=== PATIENT | female | born 1995 | race Caucasian/White ===

== ENCOUNTER → 2023-04-29 14:55 | Outpatient (BNVA) | payer MEDICARE, MEDICAID, SELFPAY | PROVIDERS: Visit Provider Obstetrics & Gynecology | DX: Z34.90 Encounter for supervision of normal pregnancy, unspecified, unspecified trimester (principal) | CPT/HCPCS: 81000 ==

== ENCOUNTER → 2023-06-17 14:20 | Outpatient (BNVA) | payer MEDICARE, MEDICAID, SELFPAY | PROVIDERS: Visit Provider Obstetrics & Gynecology | DX: Z34.80 Encounter for supervision of other normal pregnancy, unspecified trimester (principal) | CPT/HCPCS: 80307; 84315; 85027; 86592; 86762; 86803; 86850; 86900; 87086; 87340; 87806 ==

== ENCOUNTER 2024-07-02 13:56 | Outpatient (CLI) | payer MEDICARE, MEDICAID, SELFPAY ==
--- NOTE | 2024-07-02 14:01 | US_ITS ---
WS: [id number] EARLY OBSTETRICAL ULTRASOUND (<14 WEEKS). HISTORY: encounter for supervision of other normal , first t COMPARISON: None available. Single intrauterine gestational sac is identified. Cardiac activity at 145 BPM. Single intrauterine g estation identified. Biometry measurements consistent with an age of 15 weeks and 3 days. Placenta is developing anterior. Cervix is closed. No free fluid. Neither ovary is identified. US/US OB <= 14 weeks fetus [id number] IMPRESSION: 1. Single intrauterine gestation of 15 weeks 3 days with an EDC of 12/21/2024. 2. Normal cardiac activity.
== END 2024-07-02 13:57 | disposition home or self-care (01) ==
LOC: RAD 13:57
PROVIDERS: PCP Family Medicine; Visit Provider Family Medicine
DX: Z34.81 Encounter for supervision of other normal pregnancy, first trimester (principal)
CPT/HCPCS: 76801

== ENCOUNTER 2024-09-03 15:12 | Outpatient (CLI) | payer MEDICARE, MEDICAID, SELFPAY ==
--- NOTE | 2024-09-03 15:16 | USR_ITS ---
PROCEDURE INFORMATION: Exam: US After First Trimester, Transabdominal Exam date and time: 09/03/2024 3:57 PM Age: 28 years old Clinical indication: Screening exam; Routine US, uterus; Additional info: Encounter ofr supervision of other normal preg. Second tri LABS AND CLINICAL REPORTS: Gestational age (Established): 24 w 3 d Estimated due date (Established): 12/21/2024 TECHNIQUE: Imaging protocol: Real-time transabdominal obstetrical ultrasound of the maternal pelvis and a second or third trimester with image documentation. COMPARISON: US OB <= 14 weeks fetus [id number] 07/02/2024 2:03 PM FINDINGS: Gestation: Single, viable intrauterine gestation. heart rate: 142 bpm presentation and position: Fetus is in breech presentation. Placenta: The placenta is anterior. No placenta abruption. Amniotic fluid (Qualitative): Amniotic fluid is normal for gestational age. Amniotic fluid index: ALICE is 12.13 cm using the 4 quadrant method. ANATOMY: midline falx: Unremarkable. cerebellum: Unremarkable. lateral ventricles: Unremarkable. cisterna magna: Unremarkable. choroid plexus: Unremarkable. face: Unremarkable. aortic arch: Unremarkable. heart four-chamber view, heart size and position: There is a four-chamber heart. heart right ventricular outflow tract: Unremarkable. heart left ventricular outflow tract: Unremarkable. diaphragm: Unremarkable. kidneys: Unremarkable. stomach: Unremarkable. urinary bladder: Unremarkable. spine: Unremarkable. Umbilical cord and insertion: There is a three-vessel umbilical cord. upper limbs: Unremarkable as visualized. lower limbs: Unremarkable as visualized. external genitalia: Presumptive male genitalia. BIOMETRY: Gestational age (AUA): EGA Estimated due date (AUA): ROYCE Estimated weight: 694.43 g or 1 lb 8 oz, 40th percentile. EFW by AC, BPD, FL, HC, [place] 1985 Biparietal diameter (BPD): 5.82 cm. EGA (BPD) is 23 w 6 d. 22.5 % percentile Head circumference (HC): 22.24 cm. EGA (HC) is 24 w 2 d. 25 % percentile Abdominal circumference (AC): 19.92 cm. EGA (AC) is 24 w 4 d. 45.4 % percentile Femur length (FL): 4.37 cm. EGA (FL) is 24 w 2 d. 34.2 % percentile HC/AC: 1.12. (Normal range: 1.04 - 1.22) FL/HC: 19.65. (Normal range: 18.7 - 20.73) FL/BPD: 75.09. (Normal range: 71 - 87) FL/AC: 21.94. (Normal range: 20 - 24) MATERNAL: Uterus: Unremarkable. Cervix: Not evaluated. Right ovary/adnexa: Obscured by lack of adequate acoustic window. Left ovary/adnexa: Obscured by lack of adequate acoustic window. Intraperitoneal space: No ascites. US/US OB >= 14 weeks fetus [id number] IMPRESSION: 1. Single live intrauterine gestation. Estimated gestational age of 24 weeks 2 days. by ultrasound. Estimated delivery date by ultrasound is 12/22/2024. There has been interval growth of the fetus. 2. Unremarkable anatomic survey. 3. Incidental/nonacute findings are listed in the report.
== END 2024-09-03 15:13 | disposition home or self-care (01) ==
LOC: RAD 15:15
PROVIDERS: PCP Family Medicine; Visit Provider Family Medicine
DX: Z34.82 Encounter for supervision of other normal pregnancy, second trimester (principal)
CPT/HCPCS: 76805

== ENCOUNTER 2024-11-01 16:03 | Outpatient (CLI) | payer MEDICARE, MEDICAID, SELFPAY ==
[2024-11-01] VITALS (8 sets, daily range): BP systolic 113–128; BP diastolic 59–79; PULSE 81–96; RESP 15; TEMP 36.8; BMI 30.9
[2024-11-01 16:53] LABS: Bilirubin Urine 1+ (Negative); Blood Urine Negative (Negative); Glucose Urine UA Negative (Normal); Ketones Urine 1+ (Negative); Leukocyte Esterase Urine 2+ (Negative); Nitrate Urine Negative (Negative); Protein Urine 1+ (Negative); Specific Gravity, Urine 1.027 (1.005-1.030); Urine Appearance Cloudy (CLEAR); Urine Color Dark Yellow (Yellow)
[2024-11-01 16:58] LABS: Bacteria Urine 4+ /hpf; RBC Urine 0-2 /hpf (0-2); Squamous Epithelial Cell Urine 21-50 /hpf (0-5); WBC Urine 51-100 /hpf (0-5)
[2024-11-01 17:08] LABS: Add Urine Culture? Yes
[2024-11-01] MEDS: lactated ringers 1,000 ML 999 ML IV (17:40)
[2024-11-01] MEDS: ondansetron 2 mg/ML SDV 2 mL 4 MG IVP (17:55)
== END 2024-11-01 18:57 | disposition home or self-care (01) ==
LOC: OPOB 16:04 → OBGYN 16:05
PROVIDERS: Family Medicine; PCP Family Medicine; Visit Provider Family Medicine
DX: O21.9 Vomiting of pregnancy, unspecified (principal); Z3A.00 Weeks of gestation of pregnancy not specified
CPT/HCPCS: 36415; 59025; 81001; 87086; 96374; 99211; J2405; J7120

== ENCOUNTER 2024-11-25 15:47 | Inpatient (IN) | payer MEDICARE, MEDICAID, SELFPAY ==
[2024-11-25] VITALS (24 sets, daily range): BP systolic 99–121; BP diastolic 53–72; PULSE 75–100; BMI 32.1
--- NOTE | 2024-11-25 15:33 | P.HP_ITS ---
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 Denies LOF, vaginal bleeding. Good movement. care has been inconsistent but has had 6-7 visits. Past medical history of delivery in her first 2 pregnancies followed by a term delivery. Otherwise course has been overall unremarkable. Present Details : 4 Para: 3 Labs Blood type OB HPI: A (+) positive Rubella: Immune RPR: Negative GBS: Unknown HBsAG: Negative Other Lab Information: Antibody screen negative HIV NR HCV Ab NR Initial H/H 12.5/36.5 GC/CHlam negative [id number] negative for Trisomy 13, 18, 21 Pap smear 07/01/24 NILM, HPV negative 1hr GTT passed (120) 3rd trimester H/H 10.6/31.4 Medications/Allergies Home Medications Medication Instructions Recorded Confirmed Last Taken Type prenat.vits,marly,[id number] 1 tab PO DAILY 04/29/23 11/25/24 11/24/24 History Allergies Allergy/AdvReac Type Severity Reaction Status Date / Time No Known Allergies Allergy Verified 06/17/23 14:39 PFSH 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 2 PFSH: Family History (Updated 04/29/23 @ 15:14 by Chiquis Greenberg [facility]) Mother Hypertension Father Diabetes Denies family history of Cervical cancer Colon cancer Ovarian cancer Breast cancer Uterine cancer Stroke History History History 2 4 Term 1 2 Miscarriages/Ectopic 1 Living Children 3 Vitals/I&O/Wt Last Vital Signs Pulse 81 11/25/24 14:19 BP 113/70 11/25/24 14:19 Weight last 48 hrs Weight 193 lb Physical Exam 2 Const: COMMON NORMALS: no acute distress, healthy appearing and alert Resp: COMMON NORMALS: normal respiratory effort and clear to auscultation bilaterally Cardio: COMMON NORMALS: regular rate, regular rhythm, S1 normal heart sound present and S2 normal heart sound present : OTHER: Gravid- S=D Extremity: NARRATIVE EXTREMITY EXAM: No LE edema Data 11/25/24 15:30 Results Labs OB ([facility]): 2 Blood Type A Positive 11/25/24 Antibody Screen Negative 11/25/24 Hct 31.8 % (36-47) L 11/25/24 Hgb 10.30 g/dL (11.27-16.99) L 11/25/24 Rho(D) Type Rh positive 11/25/24 A&P Assessment and plan (1) labor: Plan 29 year old female at 36w 2d presenting with labor. Initial SVE 4/50/-3 and changed to 5/60/-3 over 1 hour. [place] with ctx irregular q 2-4 minutes. Admit for labor. Routine CBC, blood typing. Intermittent EFM as long as Category I FHT. GBS ppx due to GBS unknown and <37 weeks. Expectant management. Discussed plan of care with patient and agreeable to proceed. Attestations 2 Medical Necessity Statement*: [facility]'s hospital stay will require greater than 2 midnights for labor and delivery and care. Coding Level of Care Code Acute Code for Chg Fwd Diagnoses labor O60.00
[2024-11-25 15:47] LABS: Basophils % 0.2 %; Eosinophils # 0.2 10^3/uL (0.0-0.8); Eosinophils % 2.1 %; Hematocrit 31.8 % (36-47); Lymphocytes # 1.4 10^3/uL (0.8-4.8); Lymphocytes % 12.8 %; Mean Corpuscular HGB Conc 32.4 g/dL (30-55); Mean Corpuscular Hemoglobin 30.8 pg (27-33); Mean Corpuscular Volume 95.2 fl (85-98); Mean Platelet Volume 10.2 fL (7.4-10.4); Monocytes # 0.9 10^3/uL (0.2-0.9); Monocytes % 8.4 %; Neutrophils # 8.23 10^3/uL (1.8-7.7); Neutrophils % 75.3 %; Nucleated Red Blood Cells % 0 %; Platelet Count 199 10^3/cmm (157-399); Red Blood Count 3.34 10^6/uL (3.85-5.65); Red Cell Distribution Width 14.6 % (12.1-15.1); White Blood Count 10.93 10^3/uL (3.29-11.43)
[2024-11-25] MEDS: dextrose 5%-lactated ringers 1,000 ML 125 ML IV (15:49)
[2024-11-25] MEDS: ampicillin 2,000 MG in sodium chloride 0.9% (plus) 50 ML 100 MG IV (15:51)
[2024-11-25] MEDS: ampicillin 1,000 MG in sodium chloride 0.9% (plus) 50 ML 100 MG IV (20:50)
[2024-11-25 22:51] LABS: Amphetamines Screen Urine Negative (Negative); Barbiturates Screen Urine Positive (Negative); Benzodiazepines Screen Urine Negative (Negative); Cocaine Screen Urine Negative (Negative); Opiate Screen Urine Negative (Negative); PCP Screen Urine Negative (Negative); THC Screen Urine Negative (Negative)
[2024-11-25] MEDS: lactated ringers 1,000 ML 999 ML IV (23:27)
[2024-11-26] VITALS (65 sets, daily range): BP systolic 79–141; BP diastolic 40–83; PULSE 77–110; RESP 16–18; TEMP 36.4–36.7; O2SAT 87–100
--- NOTE | 2024-11-26 01:05 | ANES.PROC ---
Anesthesia Procedures Procedure/Date: 11/26/24 Epidural: Time Out Performed: Yes Consents Signed: Procedure Consent Consent: requested by attending/covering physician, from patient, risks and benefits reviewed and patient agrees to proceed Lumbar Level: L3-L4 Epidural position: sitting Epidural procedure: sterile prep of area, 1% lidocaine to numb the area, 18 g needle, neg for paresthesia, test dose given, 1.5% xylocaine 1:200k epi (5cc), 0.2% Ropivacaine bolus ml (4cc and Fentanyl 100mcg), placed PCEA, no systemic response, sterile dressing applied, L.U.D. no apparent complications and 0.2% Ropiavacaine @ mls/hr (13cc/hour) Additional Comments: Pt tolerated well
--- NOTE | 2024-11-26 01:07 | P.ANESASSM_ITS ---
Pre-Anesthetic Assessment Height/Weight: Height 1.65 m Weight 87.543 kg Pulse BP Pulse Ox O2 Del Method 98 128/57 100 Room Air 11/26/24 01:00 11/26/24 01:00 11/26/24 01:00 11/25/24 16:19 Preop Diagnosis: Labor pain KATE Was Beta Samir taken within 24 hours: N/A Was Clonidine taken within 24 hours: N/A Social No alcohol and No tobacco Exam alert, oriented x 3, clear to auscultation bilaterally and regular rate & rhythm Airway Submandibular: within normal limits Cervical ROM: within normal limits Mallampati: Class II Dentition: full History/ROS No significant history except as noted and No significant complaints Pulmonary None reported CV/HEM None reported None reported Hepatic None reported GI None reported Metabolic None reported Musc/skel None reported Neuropsych None reported Anesthetic Plan ASA status: 2 Anesthesia: Anesthesia Evaluation and Regional (specify below) (Epidural) Risk of > 500 ml blood loss (7ml/kg in children): No Medications/Allergies Home Medications Medication Instructions Recorded Confirmed Last Taken Type prenat.vits,marly,[id number] 1 tab PO DAILY 04/29/23 11/25/24 11/24/24 History Allergies Allergy/AdvReac Type Severity Reaction Status Date / Time No Known Allergies Allergy Verified 06/17/23 14:39 Current Medications Generic Name Dose Route Start Last Admin Trade Name Freq PRN Reason Stop Dose Admin Dextrose/Sodium Chloride 1,000 mls @ 125 mls/hr 11/25/24 15:30 11/25/24 16:51 Dextrose 5%-Sod Chloride 0.45% IV Not Given .Q8H TARIK Ampicillin Sodium 1,000 mg/ 50 mls @ 100 mls/hr 11/25/24 19:30 11/25/24 20:50 Sodium Chloride IV 100 mls/hr Q4H TARIK Administration Protocol Dextrose/Lactated Ringer's 1,000 mls @ 125 mls/hr 11/25/24 15:45 11/25/24 15:49 Dextrose 5%-Lactated Ringers IV 125 mls/hr .Q8H TARIK Administration Lactated Ringer's 1,000 mls @ 999 mls/hr 11/25/24 22:46 11/25/24 23:27 Lactated Ringers IV 999 mls/hr .Q1H1M PRN Administration See label comments PFSH Anesthesia Family History (Updated 04/29/23 @ 15:14 by Chiquis Greenberg CMA) Mother Hypertension Father Diabetes Denies family history of Cervical cancer Colon cancer Ovarian cancer Breast cancer Uterine cancer Stroke Female Reproductive History : 4 Data Anesthesia 11/25/24 15:30 Short CBC 11/25/24 Range/Units 15:30 WBC 10.93 (3.29-11.43) 10^3/uL Hgb 10.30 L (11.27-16.99) g/dL Hct 31.8 L (36-47) % MCV 95.2 (85-98) fl Plt Count 199 (157-399) 10^3/cmm Neut % (Auto) 75.3 % Neut # (Auto) 8.23 H (1.8-7.7) 10^3/uL Blood Bank 11/25/24 15:30 Blood Type A Positive Rho(D) Type Rh positive Antibody Screen Negative Cardiac Studies: 2 No Data to Display
[2024-11-26] MEDS: ROPivacaine syringe 100 MG/50 ML SYRINGE 10 MG EPIDURAL ×2 (01:10→04:36)
[2024-11-26] MEDS: ampicillin 1,000 MG in sodium chloride 0.9% (plus) 50 ML 100 MG IV ×2 (01:34→05:30)
[2024-11-26] MEDS: oxytocin 30 UNIT/500 ML BAG IV (02:24)
[2024-11-26] MEDS: ondansetron 2 mg/ML SDV 2 mL 4 MG IVP (05:26)
[2024-11-26] MEDS: ePHEDrine 50 mg/mL Inj 10 MG IVP (05:52)
--- NOTE | 2024-11-26 06:39 | P.PCNOB_ITS ---
Delivery Note: Date of delivery: November 26, 2024 Pre-delivery diagnoses: labor Procedure: Spontaneous vaginal delivery Delivering Physician: Nicky Calzada DO Estimated blood loss (mL): 150 Pre-Delivery Course: Admitted on 11/25/2024 for labor with initial SVE of 1 4/50/-3 and changed to 5/60/-3 over 1-hour. She then gradually progressed to 6/75/-3 and at that time AROM was performed at 2147 with clear fluid. She then progressed to 8/90/- 3 and made no exchange mechanic several hours and so low-dose Pitocin was started. She then progressed to complete. Delivery: Patient progressed to complete. Patient placed in lithotomy position. Patient pushed with adequate effort. Head delivered in SHIRIN position, loose nuchal cord x1 was present and reduced . Shoulders and rest of body delivered without difficulty with adequate epidural anesthesia. Mouth and nares bulb suctioned. Cord clamped and cut after 1 minute delay. Infant placed on maternal abdomen. Infant noted to be vigorous with spontaneous cry. Placenta spontaneously delivered and noted to be intact. Pitocin started. Fundus was noted to be firm with massage. The vagina and cervix were inspected and bilateral periurethral abrasions and no lacerations were noted. Fundus was again noted to be firm. Male born at 0615 with 8/7/7 weighing 6lb 10oz. Placenta noted to be intact with centrally inserted umbilical cord and three- vessel cord. Complications: Maternal none Infant transferred to [facility] for further resuscitation History History History 5 Term 1 3 Miscarriages/Ectopic 1 Living Children 4 A&P Assessment and plan (1) Spontaneous vaginal delivery: (2) delivery: (3) Positive urine drug screen: Coding Level of Care Code Acute Code for Chg Fwd Diagnoses Spontaneous vaginal delivery O80 delivery O60.10X0 Positive urine drug screen R82.5
[2024-11-26] MEDS: PRENATAL VIT NO.130/IRON/FOLIC 1 EACH TABLET PO (09:22)
[2024-11-26] MEDS: docusate sodium 100 mg Capsule PO ×2 (09:22→20:14)
[2024-11-26] MEDS: ferrous sulfate EC 325 mg Tablet PO (09:22)
[2024-11-26] MEDS: ibuprofen 800 mg tablet PO ×3 (09:22→20:14)
[2024-11-26] MEDS: acetaminophen 325 mg Tablet 650 MG PO (13:37)
[2024-11-26 18:10] LABS: Hematocrit 27.8 % (36-47); Mean Corpuscular HGB Conc 32.7 g/dL (30-55); Mean Corpuscular Hemoglobin 31.1 pg (27-33); Mean Corpuscular Volume 94.9 fl (85-98); Mean Platelet Volume 10.3 fL (7.4-10.4); Platelet Count 188 10^3/cmm (157-399); Red Blood Count 2.93 10^6/uL (3.85-5.65); Red Cell Distribution Width 14.7 % (12.1-15.1); White Blood Count 10.23 10^3/uL (3.29-11.43)
[2024-11-27 05:00] VITALS: BP 109/57; PULSE 71; RESP 16; TEMP 36.6; O2SAT 96
[2024-11-27] MEDS: acetaminophen 325 mg Tablet 650 MG PO (06:46)
[2024-11-27 09:10] VITALS: BP 110/70; PULSE 70; RESP 17; TEMP 36.7; O2SAT 97
[2024-11-27] MEDS: ibuprofen 800 mg tablet PO ×2 (09:12→14:35)
[2024-11-27] MEDS: PRENATAL VIT NO.130/IRON/FOLIC 1 EACH TABLET PO (09:12)
[2024-11-27] MEDS: ferrous sulfate EC 325 mg Tablet PO (09:12)
[2024-11-27] MEDS: docusate sodium 100 mg Capsule PO (09:12)
--- NOTE | 2024-11-27 11:53 | P.DS_ITS ---
Discharge Providers TENANT RELATIONS COORDINATOR Date of Admission: 11/25/24 15:47 Date of Discharge: 11/27/24 Attending Provider at Admission: Nicky Calzada DO Attending Provider at Discharge: Nicky Calzada DO Primary Care Provider: Nicky Calzada DO Diagnoses at Discharge Discharge Diagnosis (1) Spontaneous vaginal delivery: Status: Acute (2) delivery: Status: Acute (3) Positive urine drug screen: Status: Acute Reason for Visit Reason for Visit: ctx Hospital Course Hospital Course Pre-Delivery Course: Admitted on 11/25/2024 for labor with initial SVE of 4/50/-3 and changed to 5/60/-3 over 1-hour. She then gradually progressed to 6/75/-3 and at that time AROM was performed at 2147 with clear fluid. She then progressed to 8/90/- 3 and made no microsoft exchange architect several hours and so low-dose Pitocin was started. She then progressed to complete. Delivery: Patient progressed to complete. Patient placed in lithotomy position. Patient pushed with adequate effort. Head delivered in SHIRIN position, loose nuchal cord x1 was present and reduced . Shoulders and rest of body delivered without difficulty with adequate epidural anesthesia. Mouth and nares bulb suctioned. Cord clamped and cut after 1 minute delay. placed on maternal abdomen. noted to be vigorous with spontaneous cry. Placenta spontaneously delivered and noted to be intact. Pitocin started. Fundus was noted to be firm with massage. The vagina and cervix were inspected and bilateral periurethral abrasions and no lacerations were noted. Fundus was again noted to be firm. Male born at 0615 with 8/7/7 weighing 6lb 10oz. Placenta noted to be intact with centrally inserted umbilical cord and three- vessel cord. Complications: Maternal none Infant transferred to [facility] for further resuscitation course: Patient underwent on 11/25/24. course was uncomplicated. Following delivery patient ambulated well, tolerated a normal diet without nausea or vomiting. Pain was well controlled on PO medications, pumping without much production, no leg/calf pain, no calf/leg swelling, normal urination, passing gas. Infant is on CPAP and remains on CPAP at time of patient's discharge. Vaginal bleeding thin lochia and decreasing. labs significant for hemoglobin 9.1 down from 10.3 on admission- she is continued on iron supplementation on discharge. control was discussed and patient prefers depo shot. Of note, UDS on admission positive for barbiturates and patient denies any illicit or prescription drug use with home medication list including vitamin only. Confirmatory bartiturate testing pending at time of discharge. Follow-up planned for 2 and 6 weeks . Warning signs for endometritis, pre-eclampsia, DVT/PE, mastitis were reviewed, discussed additional warning signs including increased vaginal bleeding, worsening ab dominal pain. Pelvic rest and activity precautions reviewed as well. She is discharged on 11/27/24 in stable condition. Information Peripartum Data: Delivery Method: Vaginal Physical Exam Const: COMMON NORMALS: no acute distress, healthy appearing and alert Resp: COMMON NORMALS: normal respiratory effort and clear to auscultation bilaterally AUSCULTATION: clear to auscultation bilaterally Cardio: COMMON NORMALS: regular rate, regular rhythm, S1 normal heart sound present and S2 normal heart sound present RATE: regular rate RHYTHM: regular rhythm HEART SOUNDS: S1 normal heart sound present and S2 normal heart sound present : OTHER: Uterine fundus firm and below the umbilicus Extremity: NARRATIVE EXTREMITY EXAM: Trace pitting LE edema Neuro: SENSORIUM/ORIENTATION: Yes alert Urinary Catheter Management: Celis: Cath Placed During This Visit: yes, but has since been removed by the nurse Reason for Continuing Indwelling Catheter: Required Immobilization for Trauma or Surgery or Anesthesia Urinary Catheter Date of Insertion: 11/26/24 Urinary Catheter Time of Insertion: 01:10 Date Urinary Catheter Removed: 11/26/24 Time Urinary Catheter Discontinued: 06:06 History History History 5 Term 1 3 Miscarriages/Ectopic 1 Living Children 4 Discharge Data Studies Completed and Pending Pending at discharge Category Date Time Status Barbiturate Confirmation Urine Stat Lab 11/25/24 22:35 Received Laboratory Results WBC 10.23 10^3/uL (3.29-11.43) 11/26/24 18:00 RBC 2.93 10^6/uL (3.85-5.65) L 11/26/24 18:00 Hgb 9.10 g/dL (11.27-16.99) L 11/26/24 18:00 Hct 27.8 % (36-47) L 11/26/24 18:00 MCV 94.9 fl (85-98) 11/26/24 18:00 MCH 31.1 pg (27-33) 11/26/24 18:00 MCHC 32.7 g/dL (30-55) 11/26/24 18:00 RDW 14.7 % (12.1-15.1) 11/26/24 18:00 Plt Count 188 10^3/cmm (157-399) 11/26/24 18:00 MPV 10.3 fL (7.4-10.4) 11/26/24 18:00 Neut % (Auto) 75.3 % 11/25/24 15:30 Lymph % (Auto) 12.8 % 11/25/24 15:30 [place] % (Auto) 8.4 % 11/25/24 15:30 Eos % (Auto) 2.1 % 11/25/24 15:30 Baso % (Auto) 0.2 % 11/25/24 15:30 Neut # (Auto) 8.23 10^3/uL (1.8-7.7) H 11/25/24 15:30 Lymph # (Auto) 1.4 10^3/uL (0.8-4.8) 11/25/24 15:30 [place] # (Auto) 0.9 10^3/uL (0.2-0.9) 11/25/24 15:30 Eos # (Auto) 0.2 10^3/uL (0.0-0.8) 11/25/24 15:30 Baso # (Auto) 0.0 10^3/uL (0.0-0.1) 11/25/24 15:30 Nucleated RBC % (auto) 0 % 11/25/24 15:30 Nucleated RBCs # 0.0 /100WBC 11/25/24 15:30 Urine Opiates Screen Negative ng/mL (Negative) 11/25/24 22:35 Ur Barbiturates Screen Positive ng/mL (Negative) H 11/25/24 22:35 Ur Phencyclidine Scrn Negative ng/mL (Negative) 11/25/24 22:35 Ur Amphetamines Screen Negative ng/mL (Negative) 11/25/24 22:35 U Benzodiazepines Scrn Negative ng/mL (Negative) 11/25/24 22:35 Urine Cocaine Screen Negative ng/mL (Negative) 11/25/24 22:35 U Marijuana (THC) Screen Negative ng/mL (Negative) 11/25/24 22:35 Blood Type A Positive 11/25/24 15:30 Rho(D) Type Rh positive 11/25/24 15:30 Antibody Screen Negative 11/25/24 15:30 Vitals Last Vital Signs Temp 97.9 F 11/27/24 05:00 Pulse 71 11/27/24 05:00 Resp 16 11/27/24 05:00 BP 109/57 11/27/24 05:00 Pulse Ox 96 11/27/24 05:00 O2 Del Method Room Air 11/27/24 05:00 Results Labs OB ([facility]): Blood Type A Positive 11/25/24 Antibody Screen Negative 11/25/24 Hct 27.8 % (36-47) L 11/26/24 Hgb 9.10 g/dL (11.27-16.99) L 11/26/24 Rho(D) Type Rh positive 11/25/24 Plt Count 188 10^3/cmm (157-399) 11/26/24 Hep Bs Antigen Non-reactive (Nonreactive) 06/17/23 Hepatitis C Antibody Non-reactive (Nonreactive) 06/17/23 Rubella IgG Antibody 169.7 IU/mL (0.0-10.0) H 06/17/23 RPR Nonreactive (Nonreactive) 06/17/23 HIV 1&2 Ab & HIV 1 Ag Non-reactive (Non-Reactiv) 06/17/23 Cystic Fibrosis Screen Negative 05/26/23 Urine Opiates Screen Negative ng/mL (Negative) 11/25/24 Ur Barbiturates Screen Positive ng/mL (Negative) H 11/25/24 Ur Phencyclidine Scrn Negative ng/mL (Negative) 11/25/24 Ur Amphetamines Screen Negative ng/mL (Negative) 11/25/24 U Benzodiazepines Scrn Negative ng/mL (Negative) 11/25/24 Urine Cocaine Screen Negative ng/mL (Negative) 11/25/24 U Marijuana (THC) Screen Negative ng/mL (Negative) 11/25/24 Micro Urine Specimen 11/01/24 Discharge Plan Discharge Patient Disposition: Home Condition: Stable Prescriptions: New docusate sodium 100 mg Capsule 100 mg PO BID Qty: 60 0RF ibuprofen 800 mg Tablet 800 mg PO TID Qty: 90 0RF Vitamin 27 mg iron- 800 mcg Tablet 1 tab PO DAILY Qty: 90 0RF ferrous sulfate 325 mg (65 mg iron) Tablet,Delayed Release (Dr/Ec) 325 mg PO DAILY Qty: 90 0RF Continued prenat.vits,marly,irx-[id number]-[id number] Tablet 1 tab PO DAILY Discharge Orders: Discharge Order (Routine); Ordered 11/27/24 Ordered By: Nicky Calzada Discharge Diet: Regular Discharge Activity: Increase activity as tolerated Patient Instructions: Opioid Safety Activity Restrictions/Additional Instructions: Pelvic rest for 6 weeks. Follow-up with Dr. Calzada at 2 and 6 weeks Discharge Attestations TENANT RELATIONS COORDINATOR Time Spent in Discharge Care*: greater than 30 min Coding Level of Care Code Acute Code for Chg Fwd Diagnoses Spontaneous vaginal delivery O80 delivery O60.10X0 Positive urine drug screen R82.5
--- NOTE | 2024-11-27 14:51 | ANE.PACU2 ---
Inpatient post-anesthesia follow up: Airway intact: Yes Vital signs: Temperature 98.0 F Pulse Rate 70 Respiratory Rate 17 Blood Pressure 117/73 Pulse Oximetry 98 Oxygen Delivery Me thod Room Air Oxygen Flow Rate Fraction of Inspir ed Oxygen Hydration adequate: Yes Nausea and vomiting: No Pain level: 1 Mental status: Baseline Epidural Start/End: Epidural Start Date: 11/26/24 Epidural Start Time: 00:30 Epidural End Date: 11/26/24 Epidural End Time: 06:15
[2024-11-27] MEDS: lanolin oint 7 gm 1 APPLIC TOPICAL (16:17)
[2024-11-27 16:45] VITALS: BP 115/71; PULSE 80; RESP 16; TEMP 36.8; O2SAT 96
[2024-11-27] MEDS: medroxyprogesterone 150 mg/ml SDV 1 mL IM (18:09)
[2024-11-27 18:48] VITALS: BP 112/70; PULSE 70; RESP 17; TEMP 36.7; O2SAT 96
[2024-11-27 18:55] VITALS: BP 117/73; PULSE 70; RESP 17; TEMP 36.7; O2SAT 98
[2024-12-01 18:10] LABS: Urine Amobarbital NEGATIVE ng/mL (<100); Urine Butalbital NEGATIVE ng/mL (<100); Urine Pentobarbital NEGATIVE ng/mL (<100); Urine Phenobarbital NEGATIVE ng/mL (<100); Urine Secobarbital NEGATIVE ng/mL (<100)
== END 2024-11-27 18:57 | disposition home or self-care (01) | DRG 805 ==
LOC: OPOB 15:47 → OBGYN 15:47
PROVIDERS: Admitting Provider Family Medicine; PCP Family Medicine; Visit Provider Family Medicine
DX: O69.81X0 Labor and delivery complicated by cord around neck, without compression, not applicable or unspecified (principal); O60.14X0 Preterm labor third trimester with preterm delivery third trimester, not applicable or unspecified; Z37.0 Single live birth; Z3A.36 36 weeks gestation of pregnancy
CPT/HCPCS: 51702; 59025; 59409; 80306; 80345; 85025; 85027; 86850; 86900; 96372; 96374; 99211; J0290; J1050; J2405; J2590; J2795; J3010; J7120; J7121; J9999